=== PATIENT | male | born 1940 | race Caucasian/White ===

== ENCOUNTER 2020-10-01 07:49 | Outpatient (CLI) | payer MEDICARE, SELFPAY ==
--- NOTE | ~2020-10-01 | US_ITS ---
EXAMINATION: US aorta DATE: 10/01/2020 09:16 INDICATION: Abdominal aortic aneurysm screening, obesity TECHNIQUE: Grayscale, color Doppler, and pulsed Doppler images of the aorta and common iliac arteries were obtained. COMPARISON: None. FINDINGS: Maximum vascular dimensions are as follows: Proximal aorta: 2.2 cm Mid aorta: 2.6 cm Distal aorta: 2.0 cm Right common iliac artery: 1.6 cm Left common iliac artery: 1.3 cm There is no evidence of abdominal aortic aneurysm. IMPRESSION: 1. No sonographic evidence of abdominal aortic aneurysm. Reviewed, dictated and finalized at location A. TRAY DRIVER
== END 2020-10-01 07:50 | disposition home or self-care (01) ==
PROVIDERS: PCP Internal Medicine; Visit Provider Internal Medicine
DX: I71.4 Abdominal aortic aneurysm, without rupture (principal)
CPT/HCPCS: 76775

== ENCOUNTER 2020-10-14 10:21 | Outpatient (NON) | payer MEDICARE, SELFPAY ==
[2020-10-15 14:04] LABS: SARS-CoV-2 RNA PCR Positive
== END 2020-10-14 10:22 ==
LOC: ANHCOVIDDT 10:23
PROVIDERS: PCP Internal Medicine; Visit Provider Internal Medicine
DX: U07.1 COVID-19 (principal)
CPT/HCPCS: 87635; C9803; U0003

== ENCOUNTER 2020-10-15 21:00 | Emergency (ER) | payer MEDICARE, SELFPAY ==
--- NOTE | ~2020-10-15 | XR_ITS ---
EXAMINATION: XR chest 1V portable DATE: 10/15/2020 21:30 INDICATION: Shortness of breath, cough and fever. COVID positive. TECHNIQUE: frontal view of the chest was obtained. COMPARISON: Chest radiograph dated 04/03/2019 FINDINGS: Chronic elevation of the right hemidiaphragm. Right basilar opacities which could represent atelectas is and/or pneumonia. Left lung remains clear. No pulmonary edema, pleural effusion or pneumothorax. H eart size is normal. Small to moderate-sized hiatal hernia. Tortuous and atherosclerotic thoracic aor ta. Moderate thoracic spondylosis. IMPRESSION: 1. Right basilar opacities which could represent atelectasis and/or pneumonia. 2. Small to moderate hiatal hernia. Reviewed, dictated and finalized at location H. ER LICENSE AGENT
[2020-10-15 20:59] VITALS: BP 137/93; PULSE 78; RESP 18; TEMP 38.7; O2SAT 100
[2020-10-15 21:39] VITALS: RESP 18
[2020-10-15 21:45] LABS: Eosinophils Percent Auto 0.3 % (0-4.4); Hematocrit 33.9 % (42.0-52.0); Hemoglobin 11.2 g/dL (14.0-18.0); Immature Granulocyte Absolute 0.01 K/mm3 (0.00-0.031); Immature Granulocyte Percent A 0.3 % (0-0.5); Lymphocytes Absolute Auto 0.67 K/mm3 (0.9-3.2); Lymphocytes Percent Auto 19.2 % (18.3-44.2); Mean Corpuscular Hemoglobin 31.8 pg (26-34); Mean Corpuscular Volume 96.3 fl (80-100); Mean Platelet Volume 10.5 fl (7.4-10.4); Monocytes Absolute Auto 0.4 K/mm3 (0.1-0.6); Monocytes Percent Auto 10.9 % (2.6-8.5); Neutrophils Absolute Auto 2.4 K/mm3 (1.3-6.7); Neutrophils Percent Auto 69.3 % (45.5-73.1); Platelet Count Result 106 k/mm3 (150-375); Red Blood Count 3.52 M/mm3 (4.6-6.20); Red Cell Distribution Width 14.1 % (11.5-14.5); White Blood Count 3.5 K/mm3 (4.5-10.0)
--- NOTE | 2020-10-15 21:48 | ED.FEVER ---
HPI - Fever General Chief Complaint: Fever Stated Complaint: INCREASED WEAKNESS Time Seen by Provider: 10/15/20 21:38 History of Present Illness HPI Narrative: Patient is a 80-year-old gentleman who presents the emergency department with chief complaint of fever. The patient reports he was recently diagnosed with COVID-19 is now having body aches and feels extremely. The patient denies chest pain denies shortness of breath reports that his been taking Tylenol but still feels extremely weak and still reports to have a fever. Patient states symptoms are not improved by anything either worsened with activity. Related Data Allergies Allergy/AdvReac Type Severity Reaction Status Date / Time erythromycin base Allergy Unknown itching Verified 03/04/20 10:49 Penicillins Allergy Unknown Itching Verified 03/04/20 10:49 Review of Systems Review of Systems: Narrative: CONSTITUTIONAL: Denies fever, chills, or sweats. EYES: Denies visual changes, redness, or discharge. ENT: Denies rhinorrhea, congestion, sore throat, or otalgia. CARDIOVASCULAR: Denies chest pain, palpitations, or edema. RESPIRATORY: Denies cough or dyspnea. GASTROINTESTINAL: Denies abdominal pain, nausea, vomiting, or diarrhea. GENITOURINARY: Denies dysuria or hematuria. SKIN: Denies rash or itching. MUSCULOSKELETAL: Denies back pain, joint pain, or myalgia. NEUROLOGIC: Denies headache, numbness, or weakness. PSYCHIATRIC: Denies anxiety or depression. All systems reviewed & are unremarkable except as noted in HPI and below PMFSH Past Medical History Medical History Elevated liver enzymes Epilepsy Fatigue Urinary tract infection Vitamin D deficiency Social History Social History Smoking status: Never smoker Alcohol intake: current Exam Narrative: Exam Narrative: GENERAL: Well-appearing, well-nourished, and in no acute distress. HEAD: Normocephalic, atraumatic. EYES: PERRLA and EOMI. ENT: Nares clear, no rhinorrhea or epistaxis. Mucous membranes moist. NECK: Supple. CHEST: Clear to auscultation. No respiratory distress. HEART: Regular rate and rhythm. No murmur heard. Normal peripheral pulses. ABDOMEN: Soft, nontender, nondistended, normal active bowel sounds. EXTREMITIES: Normal range of motion. No edema. SKIN: Warm, dry, no rash. NEURO: No focal deficits. Alert and oriented x3. PSYCH: Normal mood and affect. Course Vital Signs Vital signs: Vital Signs Temperature 38.7 C H 10/15/20 20:59 Pulse Rate 78 10/15/20 20:59 Respiratory Rate 18 10/15/20 20:59 Blood Pressure 137/93 H 10/15/20 20:59 Pulse Oximetry 100 10/15/20 20:59 Temperature 37.3 C 10/16/20 00:59 Pulse Rate 89 10/15/20 22:20 Respiratory Rate 18 10/15/20 22:20 Blood Pressure 134/73 10/15/20 22:20 Pulse Oximetry 98 10/15/20 22:20 MDM - Fever Lab Data Result diagrams: 10/15/20 21:36 10/15/20 21:36 Labs: Lab Results 10/15/20 10/15/20 10/15/20 Range/Units 21:36 21:36 21:36 WBC 3.5 L (4.5-10.0) K/mm3 RBC 3.52 L (4.6-6.20) M/mm3 Hgb 11.2 L (14.0-18.0) g/dL Hct 33.9 L (42.0-52.0) % MCV 96.3 (80-100) fl MCH 31.8 (26-34) pg MCHC 33.0 (32-36) g/dl RDW 14.1 (11.5-14.5) % Plt Count 106 L (150-375) k/mm3 MPV 10.5 H (7.4-10.4) fl Immature Gran % (Auto) 0.3 (0-0.5) % Neut % (Auto) 69.3 (45.5-73.1) % Lymph % (Auto) 19.2 (18.3-44.2) % Alexander % (Auto) 10.9 H (2.6-8.5) % Eos % (Auto) 0.3 (0-4.4) % Baso % (Auto) 0.0 L (0.2-1.2) % Lymph # (Auto) 0.67 L (0.9-3.2) K/mm3 Alexander # (Auto) 0.4 (0.1-0.6) K/mm3 Eos # (Auto) 0.0 (0-0.3) K/mm3 Baso # (Auto) 0.0 (0.0-0.1) K/mm3 Abs Immat Gran (auto) 0.01 (0.00-0.031) K/mm3 Absolute Neuts (auto) 2.4 (1.3-6.7) K/mm3 Absolute Nucleated RBC 0.0 (0.0-0.012) K/mm3 Nuc
[2020-10-15 21:54] LABS: Prothrombin Time 14.1 Seconds (11.1-14.7)
[2020-10-15 21:56] LABS: Lactic Acid Reflex 0.8 mmol/L (0.7-2.1); Partial Thromboplastin Time 40.5 SECONDS (22.3-36.8)
[2020-10-15 22:03] LABS: Alanine Aminotransferase 47 U/L (4-50); Albumin Level 3.4 g/dL (3.5-5.1); Alkaline Phosphatase 34 U/L (38-126); Anion Gap 4 mmol/L (8-16); Aspartate Amino Transferase 125 U/L (17-59); Bilirubin,Total 0.3 mg/dL (0.2-1.3); Blood Urea Nitrogen 31 mg/dL (9-20); Calcium 8.8 mg/dL (8.4-10.2); Carbon Dioxide 34 mmol/L (22-30); Chloride 103 mmol/L (98-107); Estimated CRCL calculation 37 ml/min; Estimated Glomerular Filt Rate 45; Glucose 110 mg/dL (75-110); Potassium 4.1 mmol/L (3.4-5.0); Sodium 141 mmol/L (137-145)
[2020-10-15 22:11] LABS: CRP 12.6 mg/dL (<1.0)
[2020-10-15 22:20] VITALS: BP 134/73; PULSE 89; RESP 18; TEMP 37.6; O2SAT 98
[2020-10-15 22:43] VITALS: TEMP 38.4
[2020-10-15 23:05] LABS: Add Urine Microscopic? YES; Appearance Urine Cloudy (Clear); Bilirubin Urine Negative (Negative); Blood Urine Negative (Negative); Color Urine Yellow (Yellow); Glucose Urine UA Negative (Negative); Ketones Urine Negative (Negative); Leukocyte Esterase Ur 3+ LEU/UL (Negative); Mucus Urine Rare /lpf; Nitrate Urine Negative (Negative); Protein Urine 1+ mg/dL (Negative); Specific Grav Ur 1.019 (1.001-1.035); Squamous Epithelial Cell Urine Few /hpf (Few); Urobilinogen Urine Negative mg/dL (<2.0); WBC Urine >75 /hpf
[2020-10-15] MEDS: SODIUM CHLORIDE 0.9% IV 1,000 ML 999 ML IV CONT (23:20)
[2020-10-16 00:59] VITALS: TEMP 37.3
== END 2020-10-16 01:00 | disposition home or self-care (01) ==
PROVIDERS: Emergency Medicine Emergency Medical Services; Emergency Provider Emergency Medicine; PCP Internal Medicine
DX: U07.1 COVID-19 (principal); J12.89 Other viral pneumonia; N39.0 Urinary tract infection, site not specified; G40.909 Epilepsy, unspecified, not intractable, without status epilepticus; Z87.440 Personal history of urinary (tract) infections
CPT/HCPCS: 36415; 71045; 80053; 81001; 83605; 85025; 85610; 85730; 86140; 87040; 87086; 87088; 96361; 96365; 99284; J0131; J7030

== ENCOUNTER 2020-10-19 07:15 | Inpatient (IN) | payer MEDICARE, SELFPAY ==
[2020-10-19] VITALS (26 sets, daily range): BP systolic 127–154; BP diastolic 61–119; PULSE 66–87; RESP 14–32; TEMP 36.1–37.9; O2SAT 91–99; BMI 25.8
--- NOTE | ~2020-10-19 | XR_ITS ---
EXAMINATION: XR hip LT min 3V w AP pelvis DATE: 10/20/2020 13:51 INDICATION: Left hip pain. Fall. TECHNIQUE: An anteroposterior view of the pelvis and 3 views of left hip were obtained. COMPARISON: CT abdomen and pelvis 10/19/2020 FINDINGS: Bone alignment is normal. No fracture. There is moderate osteoarthritis of the hips. There is moderate lumbar spondylosis. There are stones in the bladder. There is contrast in the bladder. Joseph rgical clips overlie the abdomen. IMPRESSION: 1. Moderate osteoarthritis of the hips. Reviewed, dictated and finalized at location A. ER ASSEMBLER
--- NOTE | ~2020-10-19 | CT_ITS ---
EXAMINATION: CT brain wo con EXAM DATE: 10/19/2020 08:55 INDICATION: Weakness. Recent fall. Low back pain. COVID-19 positive. TECHNIQUE: Spiral CT of the head was performed without contrast. Axial, coronal and sagittal images were reviewed. The dose-length product (DLP) for this examination was 605.33 mGy-cm. The exposure w as tailored according to patient size, and iterative reconstruction (ASIR) was used as additional dos e reduction technique. Comparison is made to prior examination from 04/03/2019. FINDINGS: There is no acute intraparenchymal hemorrhage. No evidence of intraparenchymal brain mass lesion. No evidence of acute infarction. Please note that initial head CT has limited sensitivity f or small or acute infarctions. 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 S mall old left temporal occipital lobe infarction. There is moderate periventricular and subcortical hypodensity, nonspecific but probably related to small vessel ischemic disease. There is moderate p rominence of the sulci and ventricles related to cerebral atrophy. There is intracranial carotid ar teriosclerosis. There are no extra-axial collections. There is no mass effect or midline shift. Ramone doyle has had bilateral ocular lens surgery. Soft tissue is unremarkable. The visualized sinuses an d mastoid air cells are well aerated. IMPRESSION: 1. No acute intracranial findings. 2. Chronic age related findings. 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 Reviewed, dictated and finalized at location B. MANAGER
--- NOTE | ~2020-10-19 | XR_ITS ---
EXAMINATION: XR ribs LT 2V w CXR 2V EXAM DATE: 10/19/2020 09:21 INDICATION: falls, pain, bruising ant Lt chest, COVID positive. TECHNIQUE: Frontal projection of the upper left ribs, frontal projection of the lower left ribs, obli que projection of the left ribs, frontal and lateral chest x-ray(s) for interpretation. There is no prior study for comparison. FINDINGS: There are no displaced acute left rib fractures identified. There is no soft tissue abnor mality seen. There is aortic arteriosclerosis. Moderate amount of right-sided predominant acute airspace disease likely acute infectious process, cl inical correlation. No pneumothorax or pleural effusion. Cardiomediastinal silhouette is normal. Ther e are cholecystectomy clips. IMPRESSION: No displaced left rib fractures. Moderate right-sided predominant acute airspace disease . Reviewed, dictated and finalized at location B. LOGY NURSE IMPRESSION: No displaced left rib fractures. Moderate right-sided predominant acute airspace disease.
--- NOTE | ~2020-10-19 | CT_ITS ---
EXAMINATION: CT abdomen pelvis w con DATE: 10/19/2020 08:55 INDICATION: Left lower back pain. COVID-19 pneumonia. TECHNIQUE: Computed tomography (CT) of the abdomen and pelvis was performed with 100 mm Omnipaque 350 intravenous contrast. Automated exposure control and iterative reconstruction technique were employe d. The dose-length product was 1085.02 mGy-cm. COMPARISON: CT abdomen and pelvis 01/01/2010 FINDINGS: The visualized portions of the lung bases demonstrate patchy groundglass opacities in all l obes, consistent with pneumonia. No pleural effusion. The heart size is normal. There are coronary ar asuncion calcifications. No pericardial effusion. Calcified mediastinal lymph nodes are consistent with o ld granulomatous disease. There is a moderate-sized sliding hiatal hernia. There is an 8 mm cyst in t he liver. There are changes of cholecystectomy. Calcifications in the spleen are consistent with old granulomatous disease. The pancreas and adrenal glands are normal. There is mild atrophy of the kidne ys. There are cysts in the kidneys measuring up to 11 mm on the right. The prostate is mildly enlarge d. There is diffuse bladder wall thickening with multiple diverticula, likely secondary to chronic ou tlet obstruction from the mildly enlarged prostate. There are 2 stones in the bladder with the larger measuring 18 mm. There are bilateral inguinal hernias containing fat. There is diverticulosis of the colon without evidence of diverticulitis. There are no dilated loops of bowel. The appendix is nancy l. There are changes of ventral hernia repair. There are no pathologically enlarged lymph nodes. Ther e is no free intraperitoneal fluid. There is severe thoracic spondylosis and moderate lumbar spondylo sis. There is a chronic burst fracture of T11. There are chronic compression fractures of T5-T8. IMPRESSION: 1. Multifocal pneumonia. 2. Moderate-sized sliding hiatal hernia. 3. Bladder stones. 4. Diffuse bladder wall thickening with multiple diverticula, likely secondary to chronic outlet obst ruction from the mildly enlarged prostate. 5. Bilateral inguinal hernias containing fat. Reviewed, dictated and finalized at location A. GER TRADE IMPRESSION: 1. Multifocal pneumonia. 2. Moderate-sized sliding hiatal hernia. 3. Bladder stones. 4. Diffuse bladder wall thickening with multiple diverticula, likely secondary to chronic outlet obstruction from the mildly enlarged prostate. 5. Bilateral inguinal hernias containing fat.
--- NOTE | ~2020-10-19 | XR_ITS ---
EXAMINATION: XR knee LT 2V DATE: 10/23/2020 14:45 INDICATION: Left knee pain. Fall. TECHNIQUE: 2 views of left knee were obtained. COMPARISON: None. FINDINGS: Bone alignment is normal. No fracture. There is mild osteoarthritis of medial compartment. No knee joint effusion. IMPRESSION: 1. Mild left knee osteoarthritis. Reviewed, dictated and finalized at location A. ONCOLOGY CLINICAL
--- NOTE | ~2020-10-19 | XR_ITS ---
XR chest 1V portable 10/21/2020 06:03 Indication: CovidPneumonia Procedure: AP portable chest Comparison: Comparison to multiple prior studies sequentially, with oldest reviewed study dated 04/14. Findings: Developing bilateral airspace disease, compatible with pneumonia. Elevated right diaphragm. No significant pleural effusion or pneumothorax. No acute osseous abnormality. Impression: 1: Interval progression of bilateral airspace disease, compatible with pneumonia. Reviewed, dictated and finalized at location A. SOUP Impression: 1: Interval progression of bilateral airspace disease, compatible with pneumoni a.
--- NOTE | 2020-10-19 07:17 | ED.BACK ---
HPI - Back Pain/Injury General Chief Complaint: Back Pain/Injury Stated Complaint: Back Pain Source: patient Mode of arrival: EMS Limitations: no limitations History of Present Illness HPI Narrative: Patient is an 80-year-old gentleman who presents for evaluation of left-sided back pain. Patient reports that he has been feeling weak with increased back pain and spasm-like pain on the left side that travels down his left leg. When asked how long this has been occurring, patient is not able to give me a timeline exactly. Pt daughter states he was diagnosed with COVID on 10/15 with symptoms beginning on 10/13. He denies any fall or injury, but with chart review, pt with prior ER visit and had reported multiple falls. He denies any numbness. Patient states he was diagnosed with Covid over a week ago but denies any current chest pain or shortness of breath. He reports he was diagnosed with a urinary tract infection at a prior visit to our ER recently and started on an antibiotic. He states pain on the left side is dull, aching in nature, worse with movement. Related Data Allergies Allergy/AdvReac Type Severity Reaction Status Date / Time erythromycin base Allergy Unknown itching Verified 10/19/20 07:23 Penicillins Allergy Unknown Itching Verified 10/19/20 07:23 Review of Systems Review of Systems: Narrative: CONSTITUTIONAL: Denies fever, chills, or sweats. EYES: Denies visual changes, redness, or discharge. ENT: Reports mild rhinorrhea and congestion CARDIOVASCULAR: Denies chest pain, palpitations, or edema. RESPIRATORY: Denies cough or dyspnea. GASTROINTESTINAL: Denies abdominal pain, nausea, vomiting, or diarrhea. GENITOURINARY: Denies dysuria or hematuria. SKIN: Denies rash or itching. MUSCULOSKELETAL: Reports left-sided back pain, denies other joint pain or myalgias NEUROLOGIC: Denies headache, numbness, or weakness. [facility] Past Medical History Medical History Elevated liver enzymes Epilepsy Fatigue Urinary tract infection Vitamin D deficiency Social History Social History Smoking status: Never smoker Alcohol intake: current Gender identity (if verbalized by the patient): Male Exam Narrative: Exam Narrative: GENERAL: Awake, alert, conversant HEAD: Normocephalic, atraumatic. EYES: PERRLA and EOMI. ENT: Nares clear, no rhinorrhea or epistaxis. Mucous membranes moist. NECK: Supple. CHEST: No respiratory distress, breathing even and non labored HEART: Regular rate, sinus rhythm ABDOMEN:Non distended, non tender EXTREMITIES: Normal range of motion. No edema. Increased pain with movement of the left leg. Positive straight leg raise test. SKIN: Scattered bruising upper and lower extremities, thorax NEURO:No focal deficits. Alert and oriented x3 Course Vital Signs Vital signs: Vital Signs Temperature 37.9 C H 10/19/20 07:17 Pulse Rate 82 10/19/20 07:17 Respiratory Rate 17 10/19/20 07:17 Blood Pressure 138/101 H 10/19/20 07:17 Pulse Oximetry 95 10/19/20 07:17 Temperature 37.9 C H 10/19/20 07:17 Pulse Rate 76 10/19/20 10:16 Respiratory Rate 25 H 10/19/20 10:16 Blood Pressure 128/65 10/19/20 10:16 Pulse Oximetry 91 10/19/20 10:16 MDM - Back Pain/Injury MDM Narrative Medical decision making narrative: Patient presented for evaluation left lower back pain, difficulty with ambulation, frequent falls. Patient is somewhat unreliable historian, I was able to obtain more of a history from his daughter who states that he has been unable to ambulate at home without help, she has had difficulty getting him up to go to the bathroom or having him eat. Patient does have a recent Covid diagnosis, but from a Covid standpoint, patient is not in any respiratory failure. On exam, pain is reproducible and does mostly seem musculoskeletal in nature. His laboratory results are reassuring.
--- NOTE | 2020-10-19 07:50 | ECG_ITS ---
Measurements Intervals [place] Rate: 77 P: 20 [place]: 181 QRS: 20 QRSD: 93 T: 67 QT: 392 QTc: 444 Interpretive Statements SINUS RHYTHM NONSPECIFIC ST & T-WAVE ABNORMALITY- HIGH LATERAL LEADS BASELINE ARTIFACT- I, II, III, AVR, AVL, AVF BORDERLINE ECG Electronically Signed On 10-19-2020 8:19:07 [employer] SERV[employer] LEAD MERCHANDISER by Ba Erwin D.O.
[2020-10-19] MEDS: ACETAMINOPHEN 500 MG TABLET 1000 MG PO (08:12)
[2020-10-19] MEDS: diazePAM (*CRX) 5 MG TABLET 2.5 MG PO (08:12)
[2020-10-19 08:13] LABS: Eosinophils Percent Auto 0.2 % (0-4.4); Hematocrit 35.2 % (42.0-52.0); Hemoglobin 11.6 g/dL (14.0-18.0); Immature Granulocyte Absolute 0.03 K/mm3 (0.00-0.031); Immature Granulocyte Percent A 0.6 % (0-0.5); Lymphocytes Absolute Auto 0.79 K/mm3 (0.9-3.2); Mean Corpuscular Hemoglobin 30.9 pg (26-34); Mean Corpuscular Volume 93.6 fl (80-100); Mean Platelet Volume 10.2 fl (7.4-10.4); Monocytes Absolute Auto 0.3 K/mm3 (0.1-0.6); Monocytes Percent Auto 5.6 % (2.6-8.5); Neutrophils Absolute Auto 3.6 K/mm3 (1.3-6.7); Neutrophils Percent Auto 76.6 % (45.5-73.1); Platelet Count Result 144 k/mm3 (150-375); Red Blood Count 3.76 M/mm3 (4.6-6.20); Red Cell Distribution Width 13.7 % (11.5-14.5); White Blood Count 4.7 K/mm3 (4.5-10.0)
[2020-10-19] MEDS: SODIUM CHLORIDE 0.9% IV 500 ML 999 ML IV CONT (08:13)
[2020-10-19 08:23] LABS: INR 1.2; Prothrombin Time 15.3 Seconds (11.1-14.7)
[2020-10-19 08:24] LABS: Partial Thromboplastin Time 42.5 SECONDS (22.3-36.8)
[2020-10-19 08:27] LABS: Alanine Aminotransferase 49 U/L (4-50); Albumin Level 3.4 g/dL (3.5-5.1); Alkaline Phosphatase 40 U/L (38-126); Anion Gap 8 mmol/L (8-16); Aspartate Amino Transferase 98 U/L (17-59); Bilirubin,Total 0.6 mg/dL (0.2-1.3); Blood Urea Nitrogen 20 mg/dL (9-20); Calcium 8.5 mg/dL (8.4-10.2); Carbon Dioxide 30 mmol/L (22-30); Chloride 106 mmol/L (98-107); Estimated CRCL calculation 48 ml/min; Estimated Glomerular Filt Rate > 60; Glucose 116 mg/dL (75-110); Potassium 3.4 mmol/L (3.4-5.0); Sodium 144 mmol/L (137-145)
[2020-10-19 08:44] LABS: CRP 20.2 mg/dL (<1.0); Creatine Kinase 473 U/L (55-170)
[2020-10-19 08:45] LABS: Troponin I 0.055 ng/mL (0.000-0.034)
[2020-10-19 09:54] LABS: Add Urine Microscopic? YES; Appearance Urine Clear (Clear); Bacteria Urine Trace /hpf; Bilirubin Urine Negative (Negative); Blood Urine Negative (Negative); Color Urine Yellow (Yellow); Glucose Urine UA Negative (Negative); Ketones Urine Negative (Negative); Leukocyte Esterase Ur 2+ LEU/UL (Negative); Mucus Urine Rare /lpf; Nitrate Urine Negative (Negative); Protein Urine 1+ mg/dL (Negative); Squamous Epithelial Cell Urine Occasional /hpf (Few); WBC Urine >75 /hpf
[2020-10-19 10:00] LABS: Specific Grav Ur 1.041 (1.001-1.035)
[2020-10-19 11:01] LABS: Troponin I 0.064 ng/mL (0.000-0.034)
[2020-10-19] MEDS: ASPIRIN 81 MG CHEWABLE TABLET 324 MG PO (11:38)
--- NOTE | 2020-10-19 11:43 | PC.NURSE ---
attempted to call report to imu room 9. nurse currently unavailable
--- NOTE | 2020-10-19 11:51 | PC.NURSE ---
placed on O2 2lpm nc for room air sat of 91-92%
--- NOTE | 2020-10-19 11:56 | PCOTNOTE ---
Attempted OT evaluation, per RN patient has not arrived to unit yet from ED, will attempt OT eval at later time.
--- NOTE | 2020-10-19 12:32 | ADMGEN ---
This patient, Christopher Arroyo, was admitted to IMU Room 209-01 at 1225 on 10/19/2020. Patient/family oriented to hospital policies and general routines including ID bracelet, bed and alarms, visiting hours, pain management, procedures, bathroom and other care routines, personal items, smoking policy, room service/diet, and visiting hours. Information on how to activate the Rapid Response Team has been discussed. Patient/Family are encouraged to report perceived risks to care and to ask questions if they do not understand what they are told or what they should do.
--- NOTE | 2020-10-19 15:06 | PM.IMHP ---
H&P: HPI History of Present Illness Date/Time: 10/19/20 15:06 Chief complaint: covid 19,pneumonia,dehydration Narrative: Christopher Arroyo is a 80 year old male with PMHx significant for HTN, BPH, Covid 19 positive at home, was brought to ED due to generalized weakness, poor appetite, recurrent falls.Patient was diagnosed with Covid roughly 5 days ago. He was found to have UTI as well for which he has been getting Levofloxacin. Preliminary work up is also significant for B/L lung infiltrates seen on CT, chest xr showed no rib fractures. Review of Systems Review of Systems: Narrative: Generalized weakness. Constitutional: Comments: Generalized weakness. Eyes: Comments: no vision changes. ENT: Comments: no ear ache, no throat pain, no no nasal congestion. Cardiovascular: Comments: no chest pain. Respiratory: Comments: No sob, no cough or sputum production. Gastrointestinal: Comments: no abdominal pain, poor appetite. Musculoskeletal: Comments: Recurrent falls. Integumentary/Breasts: Comments: no rashes. Neurologic: Comments: no9 sensory motor deficit. [facility] Past Medical History Medical History Elevated liver enzymes Epilepsy Fatigue Urinary tract infection Vitamin D deficiency Family History Family History Other Unknown family medical history Social History Social History Smoking status: Never smoker Alcohol intake: never Substance use: never Gender identity (if verbalized by the patient): Male Sexual Orientation (if Verbalized by the Patient): Straight or Heterosexual Spiritual care concerns: No Meds Home Medications and Allergies Home Medications Medication Instructions Recorded Confirmed Type simvastatin 20 mg tablet 20 mg PO DAILY #90 tablet 07/13/20 10/19/20 Rx nitrofurantoin macrocrystal 50 mg See Rx Instructions .ROUTE 08/24/20 10/19/20 Rx capsule .COMPLEX #36 cap cholecalciferol (vitamin D3) 1,250 1,250 mcg PO .every 3 weeks #12 cap 09/16/20 10/19/20 Rx mcg (50,000 unit) capsule phenytoin sodium extended 100 mg See Rx Instructions .ROUTE 09/16/20 10/19/20 Rx capsule .COMPLEX #270 cap levofloxacin 750 mg PO DAILY 7 Days #7 tablet 10/16/20 10/19/20 Rx amlodipine-benazepril 1 cap PO HS 10/19/20 10/19/20 History clopidogrel 75 mg PO DAILY 10/19/20 10/19/20 History escitalopram oxalate 10 mg PO DAILY 10/19/20 10/19/20 History fenofibrate 160 mg PO DAILY 10/19/20 10/19/20 History finasteride 5 mg PO DAILY 10/19/20 10/19/20 History Allergies Allergy/AdvReac Type Severity Reaction Status Date / Time erythromycin base Allergy Unknown itching Verified 10/19/20 07:23 Penicillins Allergy Unknown Itching Verified 10/19/20 07:23 Vital Signs Vital Signs - 24 hr 10/19/20 07:17 10/19/20 07:25 10/19/20 07:26 Temperature 100.3 F H Pulse Rate 82 78 Respiratory Rate 17 28 H Blood Pressure 138/101 H Pulse Oximetry 95 94 94 10/19/20 07:32 10/19/20 07:33 10/19/20 07:46 Temperature Pulse Rate 77 74 77 Respiratory Rate 27 H 21 H 32 H Blood Pressure 145/76 H 154/91 H Pulse Oximetry 98 93 10/19/20 07:49 10/19/20 08:00 10/19/20 08:16 Temperature Pulse Rate 77 75 84 Respiratory Rate 14 24 H 21 H Blood Pressure Pulse Oximetry 93 10/19/20 08:31 10/19/20 08:32 10/19/20 09:39 Temperature Pulse Rate 75 78 Respiratory Rate 21 H 16 19 Blood Pressure 131/119 H Pulse Oximetry 10/19/20 10:02 10/19/20 10:04 10/19/20 10:15 Temperature Pulse Rate 87 80 75 Respiratory Rate 31 H 22 H 29 H Blood Pressure 138/69 Pulse Oximetry 94 91 93 10/19/20 10:16 10/19/20 11:50 10/19/20 12:04 Temperature 99 F Pulse Rate 76 68 70 Respiratory Rate 25 H 17 19 Blood Pressure 128/65 128/103 H 133/100 H Pulse Oximetry 91 99 99 10/19/20 12:50 Temperature 97.2 F L Pulse Rate 67 Re
[2020-10-19 19:27] LABS: Troponin I 0.061 ng/mL (0.000-0.034)
[2020-10-19] MEDS: amLODIPine BESYLATE 5 MG TABLET BY MOUTH (20:41)
[2020-10-19] MEDS: HEPARIN SODIUM 5,000 UNITS/ML VIAL 5000 UNITS SUB-Q (20:41)
[2020-10-19] MEDS: lisinopriL 20 MG TABLET PO (20:42)
[2020-10-20] VITALS (13 sets, daily range): BP systolic 99–143; BP diastolic 51–75; PULSE 61–89; RESP 16–20; TEMP 36.1–36.6; O2SAT 92–99
--- NOTE | 2020-10-20 | ECHO_ITS ---
Patient Info Name: Christopher Arroyo Age: 80 years : 1940 Gender: Male Ht: 66 in Wt: 163 lbs BSA: 1.87 m2 HR: 84 bpm BP: 143 / 63 mmHg Heart Rhythm: Sinus Rhythm Exam Date: 10/20/2020 12:00 PM Exam Location: [facility] Patient Status: Inpatient Admit Date: 10/19/2020 Staff Ordering Physician: Vargas Mcghee MD Line Assembly Utility Worker: Don Hamilton, LITA, RT Attending Provider: Grady Mayers MD Exam Type: CA echo doppler color flow Study Info Indications - elevated troponin, covid 19 infection Complete two-dimensional, color flow and Doppler transthoracic echocardiogram is performed. Strain analysis performed. Summary 1. Complete two-dimensional, color flow and Doppler transthoracic echocardiogram is performed. 2. Strain analysis performed. 3. Left ventricular chamber dimension is normal. 4. Left ventricular systolic function is normal, estimated at 55-60%. 5. There is mildly increased left ventricular wall thickness. 6. The left ventricular diastolic function is grade I diastolic dysfunction. 7. Global longitudinal strain is abnormal at -15 %. 8. Left atrial chamber dimension is mildly enlarged. 9. There is mild aortic valve regurgitation. 10. There is mild aortic valve sclerosis. 11. There is mild tricuspid valve regurgitation. 12. There is mild pulmonic regurgitation. Left Ventricle Left ventricular chamber dimension is normal. Left ventricular systolic function is normal, estimated at 55-60%. There is mildly increased left ventricular wall thickness. The left ventricular diastolic function is grade I diastolic dysfunction. Global longitudinal strain is abnormal at -15 %. Right Ventricle Right ventricular chamber dimension is normal. Right ventricular systolic function is normal. Left Atria Left atrial chamber dimension is mildly enlarged. Right Atria Right atrial chamber dimension is normal. Atrial Septum Intact interatrial septum visualized by color flow imaging. Aortic Valve The aortic valve is trileaflet. There is mild aortic valve sclerosis. There is no aortic valve stenosis. There is mild aortic valve regurgitation. Pulmonic Valve The pulmonic valve is normal. There is no pulmonic valve stenosis. There is mild pulmonic regurgitation. Mitral Valve The mitral valve has normal leaflets. There is no mitral valve stenosis. There is trace mitral valve regurgitation. Tricuspid Valve The tricuspid valve leaflets are normal. There is no significant tricuspid valve stenosis. There is mild tricuspid valve regurgitation. Pericardium/Pleural The pericardium appears normal. There is no pericardial effusion. Inferior Vena Cava Normal inferior vena cava with <50% collapse upon inspiration consistent with elevated right atrial pressure, 10 mmHg. Aorta The aortic root size at the sinus of Valsalva is dilated. Left Ventricular Outflow Tract Name Value Normal LVOT 2D LVOT Diameter 2.2 cm LVOT Doppler LVOT Peak Velocity 93 cm/s LVOT Peak Gradient 3 mmHg LVOT Mean Gradient 2 mmH
[2020-10-20 04:18] LABS: Basophils Percent Auto 0.2 % (0.2-1.2); Hemoglobin 10.8 g/dL (14.0-18.0); Immature Granulocyte Absolute 0.07 K/mm3 (0.00-0.031); Immature Granulocyte Percent A 1.2 % (0-0.5); Lymphocytes Absolute Auto 0.96 K/mm3 (0.9-3.2); Lymphocytes Percent Auto 15.9 % (18.3-44.2); Mean Corpuscular HGB Conc 32.7 g/dl (32-36); Mean Corpuscular Hemoglobin 30.5 pg (26-34); Mean Corpuscular Volume 93.2 fl (80-100); Mean Platelet Volume 10.3 fl (7.4-10.4); Monocytes Absolute Auto 0.4 K/mm3 (0.1-0.6); Monocytes Percent Auto 6.8 % (2.6-8.5); Neutrophils Absolute Auto 4.6 K/mm3 (1.3-6.7); Neutrophils Percent Auto 75.9 % (45.5-73.1); Platelet Count Result 158 k/mm3 (150-375); Red Blood Count 3.54 M/mm3 (4.6-6.20); Red Cell Distribution Width 13.7 % (11.5-14.5)
[2020-10-20 04:38] LABS: Alanine Aminotransferase 48 U/L (4-50); Albumin Level 3.3 g/dL (3.5-5.1); Alkaline Phosphatase 44 U/L (38-126); Anion Gap 8 mmol/L (8-16); Aspartate Amino Transferase 89 U/L (17-59); Bilirubin,Total 0.5 mg/dL (0.2-1.3); Blood Urea Nitrogen 22 mg/dL (9-20); Calcium 8.4 mg/dL (8.4-10.2); Carbon Dioxide 28 mmol/L (22-30); Chloride 107 mmol/L (98-107); Estimated CRCL calculation 43 ml/min; Estimated Glomerular Filt Rate > 60; Glucose 109 mg/dL (75-110); Potassium 3.5 mmol/L (3.4-5.0); Sodium 143 mmol/L (137-145)
--- NOTE | 2020-10-20 10:14 | PM.CNCAR ---
Assessment and Plan Assessment and plan (1) COVID-19: Code(s): U07.1 - COVID-19 Status: Acute Assessment and Plan: Management as per primary team (2) Troponin level elevated: Code(s): R77.8 - Other specified abnormalities of plasma proteins Status: Acute Assessment and Plan: nonspecific in the setting of infection. No acute ST segment abnormality on EKG. Will check echocardiogram to assess LV function and wall motion. Conservative cardiac management is anticipated, unless otherwise indicated. History of Present Illness History of Present Illness Consult date/time: 10/20/20 10:14 Date of consult: 10/20/2020 Reason for consult: Requesting physician: Chief complaint: HPI: 80-year-old male with hypertension, dyslipidemia, Patient was admitted to [facility] on 10/15/2020 with complaints of fever, myalgia. He was apparently diagnosed with COVID-19 infection few days prior to the arrival to the ER. Patient denied chest pain. Had shortness of breath. No palpitation, dizziness or syncope. Chest x-ray showed right basilar opacities which could represent atelectasis and/or pneumonia; small to moderate hiatal hernia. Head CT negative for any acute intracranial abnormality. CT scan of the chest from yesterday shows multifocal pneumonia. Patient's troponins are minimally elevated, and essentially flat. EKG on my personal evaluation shows sinus rhythm, nonspecific ST-T abnormality. Reason For Visit: covid 19,pneumonia,dehydration Review of Systems Review of Systems: Narrative: As per HPI, otherwise system shows generalized fatigue, weakness, shortness of breath, myalgias. No bleeding. No nausea or vomiting. PMFSH Past Medical History Medical History Elevated liver enzymes Epilepsy Fatigue Urinary tract infection Vitamin D deficiency Family History Family History (Updated 10/20/20 @ 11:09 by Vargas Mcghee MD) Other Unknown family medical history Social History Social History Smoking status: Never smoker Alcohol intake: never Substance use: never Gender identity (if verbalized by the patient): Male Sexual Orientation (if Verbalized by the Patient): Straight or Heterosexual Spiritual care concerns: No Meds Home Medications and Allergies Home Medications Medication Instructions Recorded Confirmed Type simvastatin 20 mg tablet 20 mg PO DAILY #90 tablet 07/13/20 10/19/20 Rx nitrofurantoin macrocrystal 50 mg See Rx Instructions .ROUTE 08/24/20 10/19/20 Rx capsule .COMPLEX #36 cap cholecalciferol (vitamin D3) 1,250 1,250 mcg PO .every 3 weeks #12 cap 09/16/20 10/19/20 Rx mcg (50,000 unit) capsule phenytoin sodium extended 100 mg See Rx Instructions .ROUTE 09/16/20 10/19/20 Rx capsule .COMPLEX #270 cap levofloxacin 750 mg PO DAILY 7 Days #7 tablet 10/16/20 10/19/20 Rx amlodipine-benazepril 1 cap PO HS 10/19/20 10/19/20 History clopidogrel 75 mg PO DAILY 10/19/20 10/19/20 History escitalopram oxalate 10 mg PO DAILY 10/19/20 10/19/20 History fenofibrate 160 mg PO DAILY 10/19/20 10/19/20 History finasteride 5 mg PO DAILY 10/19/20 10/19/20 History Allergies Allergy/AdvReac Type Severity Reaction Status Date / Time erythromycin base Allergy Unknown itching Verified 10/19/20 07:23 Penicillins Allergy Unknown Itching Verified 10/19/20 07:23 Vital Signs Vital Signs - 24 hr 10/19/20 10:15 10/19/20 10:16 10/19/20 11:50 Temperature 37.2 C Pulse Rate 75 76 68 Respiratory Rate 29 H 25 H 17 Blood Pressure 128/65 128/103 H Pulse Oximetry 93 91 99 10/19/20 12:04 10/19/20 12:50 10/19/20 14:00 Temperature 36.2 C L Pulse Rate 70 67 66 Respiratory Rate 19 16 Blood Pressure 133/100 H 140/76 Pulse Oximetry 99 99 10/19/20 15:43 10/19/20 16:00 10/19/20 18:00 Temperature 36.1 C L Pulse Rate 71 68 72 Respiratory Rate 15 Blood P
[2020-10-20] MEDS: PHENYTOIN SODIUM 100 MG CAP 300 MG BY MOUTH (10:53)
[2020-10-20] MEDS: SIMVASTATIN 20 MG TABLET PO (10:53)
[2020-10-20] MEDS: FENOFIBRATE 160 MG TABLET PO (10:53)
[2020-10-20] MEDS: FINASTERIDE 5 MG TABLET PO (10:53)
[2020-10-20] MEDS: CLOPIDOGREL BISULFATE 75 MG TABLET PO (10:54)
[2020-10-20] MEDS: HEPARIN SODIUM 5,000 UNITS/ML VIAL 5000 UNITS SUB-Q ×2 (10:54→21:34)
[2020-10-20] MEDS: ESCITALOPRAM OXALATE 10 MG TABLET PO (10:54)
--- NOTE | 2020-10-20 12:27 | PM.IMPN ---
Progress Note: A&P Assessment and Plan (1) Pneumonia due to COVID-19 virus: Code(s): U07.1 - COVID-19; J12.89 - Other viral pneumonia Status: Acute Assessment and Plan: Started on Rocephin and Zithromax for diffuse lung infiltrates present. Was on Levofloxacin on the outpatient setting but discontinued due to generalized weakness. COVID positive on 10/14/20. Minimal O2 requirement and efficacy is questionable so will continue to hold Remdesivir at the present time. Okay to start Dexamethasone. Continue to monitor. (2) Essential hypertension: Code(s): I10 - Essential (primary) hypertension Status: Acute Assessment and Plan: Patient's blood pressure was reviewed on 10/20 Blood pressure remains well controlled. Will continue current medications with Norvasc and Lisinopril. Continue to monitor. (3) Recurrent falls: Code(s): R29.6 - Repeated falls Status: Acute Assessment and Plan: Continue fall precautions. Continue PT/OT (4) UTI (urinary tract infection): Code(s): N39.0 - Urinary tract infection, site not specified Status: Acute Assessment and Plan: UA noted. Urine culture pending. Continue Rocephin for now. (5) Epilepsy: Code(s): G40.909 - Epilepsy, unspecified, not intractable, without status epilepticus Status: Acute Assessment and Plan: Stable. Continue Dilantin. (6) DVT prophylaxis: Code(s): Z29.9 - Encounter for prophylactic measures, unspecified Status: Acute Assessment and Plan: Heparin Subjective Date/time seen: 10/20/20 12:27 Interval history: Date of service: 10/20/20 80yo male with HTN, BPH and recently diagnosed with COVID here for GNW, poor appetite and recurrent falls. Assuming care. Chart reviewed Patient denies any chest pain or shortness of breath. Denies cough. No nausea or vomiting. Appetite is still poor. Complains of left leg and huip pain but this is not uncommon for him. Exam Narrative: Exam Narrative: AF 97.7 143/63 72 20 97% 2L Gen - NARD Chest - few scattered inspiratory rhonchi. nml RR CV - RRR S1/S2; Tele showing no significant dysrhythmias Abd - Soft, NT/ND, Positive BS Ext - No pedal edema; pain with left hip flexion but internal and external rotation normal. Nml ROM right hip and knee. Left knee without pain Psych - Nml mood and affect Skin - ecchymosis left anterior chest wall and abd wall Objective Data Vital Signs Vital Signs: Vital Signs - 24 hr 10/19/20 12:50 10/19/20 14:00 10/19/20 15:43 Temperature 97.2 F L 97.0 F L Pulse Rate 67 66 71 Respiratory Rate 16 15 Blood Pressure 140/76 136/62 Pulse Oximetry 99 99 10/19/20 16:00 10/19/20 18:00 10/19/20 20:00 Temperature 97.8 F Pulse Rate 68 72 85 Respiratory Rate 20 Blood Pressure 129/88 Pulse Oximetry 97 10/19/20 22:00 10/19/20 23:50 10/20/20 00:00 Temperature 97.8 F Pulse Rate 87 87 89 Respiratory Rate 22 H Blood Pressure 127/61 Pulse Oximetry 94 10/20/20 02:00 10/20/20 04:00 10/20/20 06:00 Temperature 97.9 F Pulse Rate 89 83 79 Respiratory Rate 20 Blood Pressure 133/62 Pulse Oximetry 96 10/20/20 07:46 10/20/20 08:00 10/20/20 10:00 Temperature 97.7 F Pulse Rate 75 75 72 Respiratory Rate 20 Blood Pressure 143/63 H Pulse Oximetry 97 97 Intake/Output Intake/Output: Intake & Output 10/17/20 10/18/20 10/19/20 10/20/20 23:59 23:59 23:59 23:59 Intake Total 1000 250 Output Total 425 Balance 575 250 Meds/Results Medications: Active Medications Generic Name Dose Route Start Last Admin Trade Name Freq PRN Reason Stop Dose Admin Acetaminophen 650 mg 10/19/20 11:42 Acetaminophen 325 Mg Tablet PO Q4H PRN Mild Pain (1-3) or Fever Al Hydrox/Mg Hydrox/Simethicone 30 ml 10/19/20 11:42 Mag Hydrox/Al Hydrox/Simeth 30 Ml Udc PO QID PRN Dyspepsia Amlodipine
[2020-10-20] MEDS: DEXAMETHASONE 2 MG TABLET 6 MG PO (14:26)
--- NOTE | 2020-10-20 15:19 | PCOTNOTE ---
Patient declined to participate in any OT ADLs or exercises. Will continue plan of care tomorrow, 10/21/2020.
[2020-10-20] MEDS: ERGOCALCIFEROL 50,000 UNIT CAPSULE 50000 UNITS PO (18:40)
[2020-10-20] MEDS: amLODIPine BESYLATE 5 MG TABLET BY MOUTH (21:34)
[2020-10-20] MEDS: lisinopriL 20 MG TABLET PO (21:34)
[2020-10-21] VITALS (10 sets, daily range): BP systolic 119–147; BP diastolic 54–97; PULSE 63–87; RESP 18–20; TEMP 35.8–37.3; O2SAT 90–100
[2020-10-21 04:35] LABS: Hematocrit 34.2 % (42.0-52.0); Hemoglobin 11.2 g/dL (14.0-18.0); Mean Corpuscular HGB Conc 32.7 g/dl (32-36); Mean Corpuscular Hemoglobin 30.8 pg (26-34); Mean Platelet Volume 10.2 fl (7.4-10.4); Platelet Count Result 213 k/mm3 (150-375); Red Blood Count 3.64 M/mm3 (4.6-6.20); Red Cell Distribution Width 14.1 % (11.5-14.5); White Blood Count 7.4 K/mm3 (4.5-10.0)
[2020-10-21 04:53] LABS: Potassium 3.9 mmol/L (3.4-5.0)
[2020-10-21 05:01] LABS: Alanine Aminotransferase 51 U/L (4-50); Albumin Level 3.3 g/dL (3.5-5.1); Alkaline Phosphatase 45 U/L (38-126); Anion Gap 4 mmol/L (8-16); Aspartate Amino Transferase 99 U/L (17-59); Bilirubin,Total 0.5 mg/dL (0.2-1.3); Blood Urea Nitrogen 34 mg/dL (9-20); Calcium 8.6 mg/dL (8.4-10.2); Carbon Dioxide 34 mmol/L (22-30); Chloride 105 mmol/L (98-107); Estimated CRCL calculation 40 ml/min; Estimated Glomerular Filt Rate 58; Glucose 112 mg/dL (75-110); Lactate Dehydrogenase 1037 U/L (313-618); Sodium 143 mmol/L (137-145)
[2020-10-21 05:39] LABS: CRP 32.8 mg/dL (<1.0)
[2020-10-21] MEDS: HEPARIN SODIUM 5,000 UNITS/ML VIAL 5000 UNITS SUB-Q ×2 (08:45→20:40)
[2020-10-21] MEDS: NITROFURANTOIN MACROCRYSTALS 50 MG CAP BY MOUTH (08:47)
[2020-10-21] MEDS: DEXAMETHASONE 2 MG TABLET 6 MG PO (08:48)
[2020-10-21] MEDS: SIMVASTATIN 20 MG TABLET PO (08:48)
[2020-10-21] MEDS: FENOFIBRATE 160 MG TABLET PO (08:48)
[2020-10-21] MEDS: ESCITALOPRAM OXALATE 10 MG TABLET PO (08:48)
[2020-10-21] MEDS: FINASTERIDE 5 MG TABLET PO (08:48)
[2020-10-21] MEDS: CLOPIDOGREL BISULFATE 75 MG TABLET PO (08:48)
[2020-10-21] MEDS: PHENYTOIN SODIUM 100 MG CAP 300 MG BY MOUTH (08:49)
--- NOTE | 2020-10-21 12:06 | PM.IMPN ---
Progress Note: A&P Assessment and Plan (1) Pneumonia due to COVID-19 virus: Code(s): U07.1 - COVID-19; J12.89 - Other viral pneumonia Status: Acute Assessment and Plan: Started on Rocephin and Zithromax for diffuse lung infiltrates present. Was on Levofloxacin on the outpatient setting but discontinued due to generalized weakness. COVID positive on 10/14/20. ECHO showing EF 55% with grade 1 diastolic dysfunction. CXR reviewed from today and showing progression despite clinically improving. Minimal O2 requirement and efficacy is questionable so will continue to hold Remdesivir at the present time. LFTs noed and probably related to COVID. Inflammatory markers noted as well. Continue Dexamethasone. Will stop abx. Continue to monitor. (2) Essential hypertension: Code(s): I10 - Essential (primary) hypertension Status: Acute Assessment and Plan: Patient's blood pressure was reviewed on 10/21 Blood pressure remains well controlled. Will continue current medications with Norvasc and Lisinopril. Continue to monitor. (3) Recurrent falls: Code(s): R29.6 - Repeated falls Status: Acute Assessment and Plan: Hip xray showing osteoarthritis. Continue fall precautions. Continue PT/OT (4) UTI (urinary tract infection): Code(s): N39.0 - Urinary tract infection, site not specified Status: Acute Assessment and Plan: UA noted. Urine culture most likely contaminate. Okay to stop Rocephin. (5) Epilepsy: Code(s): G40.909 - Epilepsy, unspecified, not intractable, without status epilepticus Status: Acute Assessment and Plan: Stable. Continue Dilantin. (6) DVT prophylaxis: Code(s): Z29.9 - Encounter for prophylactic measures, unspecified Status: Acute Assessment and Plan: Heparin Subjective Date/time seen: 10/21/20 12:06 Interval history: Date of service: 10/21 80yo male with HTN, BPH and recently diagnosed with COVID here for GNW, poor appetite and recurrent falls. Patient feels well. No chest pain. Shortness of breath is better. Still having liquid stools. Exam Narrative: Exam Narrative: AF 97.3 139/76 87 20 94% 1L Gen - NARD Chest -lungs clear to auscultation. Normal respiratory rate. CV - RRR S1/S2; Tele showing no significant dysrhythmias Abd - Soft, NT/ND, Positive BS Ext - No pedal edema Psych - Nml mood and affect Skin - ecchymosis left anterior chest wall and abd wall but no pain to palpation to the chest wall Objective Data Vital Signs Vital Signs: Vital Signs - 24 hr 10/20/20 13:41 10/20/20 16:00 10/20/20 17:30 Temperature 97 F L Pulse Rate 66 61 69 Respiratory Rate 20 Blood Pressure 138/66 Pulse Oximetry 93 92 10/20/20 20:00 10/20/20 23:45 10/21/20 00:00 Temperature 97.8 F 97.8 F Pulse Rate 75 82 87 Respiratory Rate 20 Blood Pressure 99/75 L 105/62 Pulse Oximetry 93 99 10/21/20 04:00 10/21/20 08:00 Temperature 97.8 F 97.3 F L Pulse Rate 77 87 Respiratory Rate 20 20 Blood Pressure 147/97 H 139/76 Pulse Oximetry 97 94 Intake/Output Intake/Output: Intake & Output 10/18/20 10/19/20 10/20/20 10/21/20 23:59 23:59 23:59 23:59 Intake Total 2960 793 1289 Output Total 425 Balance 981 269 8733 Meds/Results Medications: Active Medications Generic Name Dose Route Start Last Admin Trade Name Freq PRN Reason Stop Dose Admin Acetaminophen 650 mg 10/19/20 11:42 Acetaminophen 325 Mg Tablet PO Q4H PRN Mild Pain (1-3) or Fever Al Hydrox/Mg Hydrox/Simethicone 30 ml 10/19/20 11:42 Mag Hydrox/Al Hydrox/Simeth 30 Ml Udc PO QID PRN Dyspepsia Amlodipine Besylate 5 mg 10/19/20 21:00 10/20/20 21:34 Amlodipine Besylate 5 Mg Tablet BY MOUTH 5 mg HS CHAVA Administration Clopidogrel Bisulfate 75 mg 10/20/20 09:00 10/21/20 08:48 Clopidogrel Bisulfate 75 Mg Tablet PO 75 mg DAILY CHAVA
--- NOTE | 2020-10-21 13:08 | PM.PNCARD ---
Progress Note: A&P Assessment and Plan (1) COVID-19: Code(s): U07.1 - COVID-19 Status: Acute Assessment and Plan: Management as per primary team (2) Troponin level elevated: Code(s): R77.8 - Other specified abnormalities of plasma proteins Status: Acute Assessment and Plan: nonspecific in the setting of infection. No acute ST segment abnormality on EKG. Not related to ACS Echocardiogram is unremarkable. Cardiology to sign off Subjective Date/time seen: 10/21/20 13:08 Interval history: 80yo male with HTN, BPH and recently diagnosed with COVID here for GNW, poor appetite and recurrent falls. Date of service 10/21/2020: No chest pain. No significant shortness breath. Feels okay consider Review of Systems Review of Systems: All systems reviewed & are unremarkable except as noted in HPI and below ENT: Reports Normal hearing present Cardiovascular: Cardiovascular: Denies chest pain Neurologic: Denies headache(s) Exam Const: General: no acute distress HENMT: General nose exam: Normal nares present Eyes: Sclera: sclerae normal Cardio: Rate: regular rate Rhythm: regular rhythm Neuro: Cognition (Neuro): normal cognition Speech: normal speech Psych: Mental Status: mental status grossly normal Objective Data Vital Signs Vital Signs: Vital Signs - 24 hr 10/20/20 13:41 10/20/20 16:00 10/20/20 17:30 Temperature 36.1 C L Pulse Rate 66 61 69 Respiratory Rate 20 Blood Pressure 138/66 Pulse Oximetry 93 92 10/20/20 20:00 10/20/20 23:45 10/21/20 00:00 Temperature 36.6 C 36.6 C Pulse Rate 75 82 87 Respiratory Rate 20 Blood Pressure 99/75 L 105/62 Pulse Oximetry 93 99 10/21/20 04:00 10/21/20 08:00 10/21/20 12:00 Temperature 36.6 C 36.3 C L 36.3 C L Pulse Rate 77 87 76 Respiratory Rate 20 20 20 Blood Pressure 147/97 H 139/76 125/57 L Pulse Oximetry 97 94 94 Intake/Output Intake/Output: Intake & Output 10/18/20 10/19/20 10/20/20 10/21/20 23:59 23:59 23:59 23:59 Intake Total 3900 197 1089 Output Total 425 Balance 644 190 3307 Meds/Results Medications: Active Medications Generic Name Dose Route Start Last Admin Trade Name Freq PRN Reason Stop Dose Admin Acetaminophen 650 mg 10/19/20 11:42 Acetaminophen 325 Mg Tablet PO Q4H PRN Mild Pain (1-3) or Fever Al Hydrox/Mg Hydrox/Simethicone 30 ml 10/19/20 11:42 Mag Hydrox/Al Hydrox/Simeth 30 Ml Udc PO QID PRN Dyspepsia Amlodipine Besylate 5 mg 10/19/20 21:00 10/20/20 21:34 Amlodipine Besylate 5 Mg Tablet BY MOUTH 5 mg HS CHAVA Administration Clopidogrel Bisulfate 75 mg 10/20/20 09:00 10/21/20 08:48 Clopidogrel Bisulfate 75 Mg Tablet PO 75 mg DAILY CHAVA Administration Dexamethasone 6 mg 10/20/20 12:40 10/21/20 08:48 Dexamethasone 2 Mg Tablet PO 10/29/20 08:01 2 mg DAILY@0800 CHAVA Administration Ergocalciferol 50,000 unit 10/20/20 15:10 10/20/20 18:40 Ergocalciferol 50,000 Unit Capsule PO 50,000 unit Q21D@0900 CHAVA Administration Escitalopram Oxalate 10 mg 10/20/20 09:00 10/21/20 08:48 Escitalopram Oxalate 10 Mg Tablet PO 10 mg DAILY CHAVA Administration Fenofibrate 160 mg 10/20/20 09:00 10/21/20 08:48 Fenofibrate 160 Mg Tablet PO 160 mg DAILY CHAVA Administration Finasteride 5 mg 10/20/20 09:00 10/21/20 08:48 Finasteride 5 Mg Tablet PO 5 mg DAILY CHAVA Administration Heparin Sodium (Porcine) 5,000 units 10/19/20 21:00 10/21/20 08:45 Heparin Sodium 5,000 Units/Ml Vial SUB-Q 5,000 units Q12HR CHAVA Administration Azithromycin 500 mg in 250 mls @ 250 mls/hr 10/19/20 16:00 10/20/20 21:35 Zithromax IVPB 250 mls/hr Q24H CHAVA Administration Ceftriaxone Sodium 2 gm in 100 mls @ 200 mls/hr 10/19/20 18:00 10/20/20 19:27 Rocephin 2 Gm/D5w 100 Ml IVPB Infused Q24H CHAVA Infusion Levofloxacin 750 mg 10/20/20 09:00 Levofloxacin Tab 750 Mg Tab
--- NOTE | 2020-10-21 19:21 | PC.NURSE ---
This patient, Christopher Arroyo, was transferred to [[id number] ] on 10/21/20 at 1845. Personal belongings sent with patient. Report given to [ ]. Appropriate documentation sent with patient.
--- NOTE | 2020-10-21 19:38 | PC.NURSE ---
this patient arrived to room 317 at 1900 from imu, V/S stable, no complaints of pain or discomfort
[2020-10-21] MEDS: lisinopriL 20 MG TABLET PO (20:40)
[2020-10-21] MEDS: amLODIPine BESYLATE 5 MG TABLET BY MOUTH (20:40)
[2020-10-22] VITALS (11 sets, daily range): BP systolic 120–155; BP diastolic 59–88; PULSE 63–89; RESP 16–22; TEMP 36.2–38.1; O2SAT 90–96
[2020-10-22] MEDS: ACETAMINOPHEN 325 MG TABLET 650 MG PO ×2 (06:02→21:28)
[2020-10-22 08:07] LABS: Alanine Aminotransferase 56 U/L (4-50); Albumin Level 3.1 g/dL (3.5-5.1); Alkaline Phosphatase 49 U/L (38-126); Anion Gap 6 mmol/L (8-16); Aspartate Amino Transferase 111 U/L (17-59); Bilirubin,Total 0.6 mg/dL (0.2-1.3); Blood Urea Nitrogen 36 mg/dL (9-20); CRP 29.4 mg/dL (<1.0); Calcium 8.6 mg/dL (8.4-10.2); Carbon Dioxide 31 mmol/L (22-30); Chloride 103 mmol/L (98-107); Estimated CRCL calculation 43 ml/min; Estimated Glomerular Filt Rate > 60; Glucose 107 mg/dL (75-110); Lactate Dehydrogenase 1043 U/L (313-618); Potassium 3.5 mmol/L (3.4-5.0); Sodium 140 mmol/L (137-145)
[2020-10-22] MEDS: DEXAMETHASONE 2 MG TABLET 6 MG PO (08:08)
[2020-10-22] MEDS: SIMVASTATIN 20 MG TABLET PO (08:09)
[2020-10-22] MEDS: PHENYTOIN SODIUM 100 MG CAP 300 MG BY MOUTH (08:09)
[2020-10-22] MEDS: CLOPIDOGREL BISULFATE 75 MG TABLET PO (08:09)
[2020-10-22] MEDS: FINASTERIDE 5 MG TABLET PO (08:09)
[2020-10-22] MEDS: ESCITALOPRAM OXALATE 10 MG TABLET PO (08:09)
[2020-10-22] MEDS: FENOFIBRATE 160 MG TABLET PO (08:09)
[2020-10-22] MEDS: HEPARIN SODIUM 5,000 UNITS/ML VIAL 5000 UNITS SUB-Q ×2 (08:10→21:26)
--- NOTE | 2020-10-22 16:48 | PM.IMPN ---
Progress Note: A&P Assessment and Plan (1) Pneumonia due to COVID-19 virus: Code(s): U07.1 - COVID-19; J12.89 - Other viral pneumonia Status: Acute Assessment and Plan: Started on Rocephin and Zithromax for diffuse lung infiltrates present. Was on Levofloxacin on the outpatient setting but discontinued due to generalized weakness. COVID positive on 10/14/20. ECHO showing EF 55% with grade 1 diastolic dysfunction. CXR reviewed from yesterday and showing progression despite clinically improving. Minimal O2 requirement but worse today at 3L despite benign exam findings. Efficacy is questionable so will continue to hold Remdesivir at the present time. LFTs noted and probably related to COVID. Inflammatory markers up and down. Continue Dexamethasone. Continue to monitor. Repeat COVID test pending. Wean O2 as tolerated. Stop abx. Okay to stop tele (2) Essential hypertension: Code(s): I10 - Essential (primary) hypertension Status: Acute Assessment and Plan: Patient's blood pressure was reviewed on 10/22 Blood pressure remains well controlled. Will continue current medications with Norvasc and Lisinopril. Continue to monitor. (3) Recurrent falls: Code(s): R29.6 - Repeated falls Status: Acute Assessment and Plan: Hip xray showing osteoarthritis. Continue fall precautions. Continue PT/OT (4) UTI (urinary tract infection): Code(s): N39.0 - Urinary tract infection, site not specified Status: Acute Assessment and Plan: UA noted. Urine culture most likely contaminated. (5) Epilepsy: Code(s): G40.909 - Epilepsy, unspecified, not intractable, without status epilepticus Status: Acute Assessment and Plan: Stable. Continue Dilantin. (6) DVT prophylaxis: Code(s): Z29.9 - Encounter for prophylactic measures, unspecified Status: Acute Assessment and Plan: Heparin Subjective Date/time seen: 10/22/20 16:48 Interval history: Date of service: 10/22 80yo male with HTN, BPH and recently diagnosed with COVID here for GNW, poor appetite and recurrent falls. No complaints. Slept well. SOB better. No CP. Exam Narrative: Exam Narrative: Tm 100.6 97.4 120/64 63 18 94% 3L Gen - NARD lying semi-recumb in bed Chest -lungs clear to auscultation. Normal respiratory rate. CV - RRR S1/S2; Tele showing sinus arrhythmia but no significant dysrhythmias Abd - Soft, NT/ND, Positive BS Ext - No pedal edema Psych - Nml mood and affect Skin - ecchymosis left anterior chest wall and abd wall Objective Data Vital Signs Vital Signs: Vital Signs - 24 hr 10/21/20 19:00 10/21/20 20:00 10/21/20 20:30 Temperature 98.3 F 99.1 F Pulse Rate 63 73 75 Respiratory Rate 18 20 18 Blood Pressure 123/66 120/93 H 119/59 L Pulse Oximetry 90 100 90 10/21/20 20:59 10/22/20 00:00 10/22/20 04:00 Temperature 100.0 F H 100.6 F H Pulse Rate 88 89 Respiratory Rate 22 H 20 Blood Pressure 124/66 124/88 Pulse Oximetry 91 90 94 10/22/20 06:02 10/22/20 07:26 10/22/20 08:00 Temperature 100 F H 98.7 F 98.2 F Pulse Rate 76 Respiratory Rate 16 Blood Pressure 130/59 L Pulse Oximetry 95 10/22/20 08:11 10/22/20 12:00 Temperature 97.4 F L Pulse Rate 77 63 Respiratory Rate 16 18 Blood Pressure 120/64 Pulse Oximetry 95 94 Intake/Output Intake/Output: Intake & Output 10/19/20 10/20/20 10/21/20 10/22/20 23:59 23:59 23:59 23:59 Intake Total 1088 712 1330 520 Output Total 425 Balance 097 687 4926 520 Meds/Results Medications: Active Medications Generic Name Dose Route Start Last Admin Trade Name Freq PRN Reason Stop Dose Admin Acetaminophen 650 mg 10/19/20 11:42 10/22/20 06:02 Acetaminophen 325 Mg Tablet PO 650 mg Q4H PRN Administration Mild Pain (1-3) or Fever Al Hydrox/Mg Hydrox/Simethicone 30 ml 10/19/20 11:42 Mag Hydrox/Al Hydrox/Simeth 30 Ml Ud
[2020-10-22] MEDS: amLODIPine BESYLATE 5 MG TABLET BY MOUTH (21:26)
[2020-10-22] MEDS: lisinopriL 20 MG TABLET PO (21:26)
[2020-10-23] VITALS (8 sets, daily range): BP systolic 141–157; BP diastolic 69–93; PULSE 66–89; RESP 16–20; TEMP 36.7–38.1; O2SAT 91–93
[2020-10-23] MEDS: DEXAMETHASONE 2 MG TABLET 6 MG PO (08:09)
[2020-10-23] MEDS: FINASTERIDE 5 MG TABLET PO (08:09)
[2020-10-23] MEDS: HEPARIN SODIUM 5,000 UNITS/ML VIAL 5000 UNITS SUB-Q ×2 (08:09→20:39)
[2020-10-23] MEDS: PHENYTOIN SODIUM 100 MG CAP 300 MG BY MOUTH (08:09)
[2020-10-23] MEDS: CLOPIDOGREL BISULFATE 75 MG TABLET PO (08:09)
[2020-10-23] MEDS: SIMVASTATIN 20 MG TABLET PO (08:10)
[2020-10-23] MEDS: NITROFURANTOIN MACROCRYSTALS 50 MG CAP BY MOUTH (08:10)
[2020-10-23] MEDS: FENOFIBRATE 160 MG TABLET PO (08:10)
[2020-10-23] MEDS: ESCITALOPRAM OXALATE 10 MG TABLET PO (08:10)
[2020-10-23] MEDS: ACETAMINOPHEN 325 MG TABLET 650 MG PO (08:20)
[2020-10-23 08:24] LABS: Alanine Aminotransferase 57 U/L (4-50); Albumin Level 3.2 g/dL (3.5-5.1); Alkaline Phosphatase 54 U/L (38-126); Anion Gap 4 mmol/L (8-16); Aspartate Amino Transferase 101 U/L (17-59); Bilirubin,Total 0.7 mg/dL (0.2-1.3); Blood Urea Nitrogen 31 mg/dL (9-20); Calcium 8.9 mg/dL (8.4-10.2); Carbon Dioxide 33 mmol/L (22-30); Chloride 104 mmol/L (98-107); Estimated CRCL calculation 52 ml/min; Estimated Glomerular Filt Rate > 60; Glucose 100 mg/dL (75-110); Lactate Dehydrogenase 1057 U/L (313-618); Potassium 3.9 mmol/L (3.4-5.0); Sodium 141 mmol/L (137-145)
[2020-10-23 08:46] LABS: CRP 31.2 mg/dL (<1.0)
--- NOTE | 2020-10-23 12:26 | PM.IMPN ---
Progress Note: A&P Assessment and Plan (1) Pneumonia due to COVID-19 virus: Code(s): U07.1 - COVID-19; J12.89 - Other viral pneumonia Status: Acute Assessment and Plan: Started on Rocephin and Zithromax for diffuse lung infiltrates present. Was on Levofloxacin on the outpatient setting but discontinued due to generalized weakness. COVID positive on 10/14/20. ECHO showing EF 55% with grade 1 diastolic dysfunction. CXR reviewed from 10/21 showing progression despite clinically improving. Minimal O2 requirement at 2L. Out of the window for Remdesivir. LFTs noted and probably related to COVID. Inflammatory markers up and down. Continue Dexamethasone Day 4. Continue to monitor. Repeat COVID test pending. Wean O2 as tolerated. (2) Essential hypertension: Code(s): I10 - Essential (primary) hypertension Status: Acute Assessment and Plan: Patient's blood pressure was reviewed on 10/23 Blood pressure remains reasonably well controlled. Will continue current medications with Norvasc and Lisinopril. Continue to monitor. (3) Recurrent falls: Code(s): R29.6 - Repeated falls Status: Acute Assessment and Plan: Hip xray showing osteoarthritis. No obvious findings on exam except for some dital thigh pain. Continue fall precautions. Continue PT/OT. Check left knee xray. (4) UTI (urinary tract infection): Code(s): N39.0 - Urinary tract infection, site not specified Status: Acute Assessment and Plan: UA noted. Urine culture most likely contaminated. (5) Epilepsy: Code(s): G40.909 - Epilepsy, unspecified, not intractable, without status epilepticus Status: Acute Assessment and Plan: Stable. Continue Dilantin. (6) DVT prophylaxis: Code(s): Z29.9 - Encounter for prophylactic measures, unspecified Status: Acute Assessment and Plan: Heparin Subjective Date/time seen: 10/23/20 12:26 Interval history: Date of service: 10/23 80yo male with HTN, BPH and recently diagnosed with COVID here for GNW, poor appetite and recurrent falls. Feels well. Has decreased appetitie but no n/v. No CP or abd pain. Cough better. Spoke with PT: he is min assist and able to walk 5 feet but left knee gives out (chronic). He was standby for bed mobility. Denies dysuria Exam Narrative: Exam Narrative: Tm 100.6 100.6 141/93 89 18 92% 2L Gen - NARD lying sflat in bed Chest -lungs clear to auscultation bilateally. Normal respiratory rate. CV - RRR S1/S2 Abd - Soft, NT/ND, Positive BS Ext - No pedal edema; nml ROM on the bilateral ankle, hip and knee without pain. left distal anterior thigh pain to palpation. Neuo - nml strength to the LE except for mild weakness in bilateral hip flexors Psych - Nml mood and affect Skin - resolving ecchymosis left anterior chest wall and abd wall Objective Data Vital Signs Vital Signs: Vital Signs - 24 hr 10/22/20 16:00 10/22/20 20:00 10/22/20 21:28 Temperature 97.1 F L 100.3 F H 100.3 F H Pulse Rate 65 74 Respiratory Rate 18 20 Blood Pressure 138/72 155/70 H Pulse Oximetry 94 96 10/22/20 23:18 10/23/20 00:00 10/23/20 04:00 Temperature 100.2 F H 100.6 F H 99.9 F H Pulse Rate 69 82 Respiratory Rate 18 20 Blood Pressure 146/70 H 151/78 H Pulse Oximetry 92 91 10/23/20 08:00 10/23/20 08:14 10/23/20 08:20 Temperature 100.6 F H 100.6 F H Pulse Rate 89 89 Respiratory Rate 16 18 Blood Pressure 141/93 H Pulse Oximetry 93 92 Intake/Output Intake/Output: Intake & Output 10/20/20 10/21/20 10/22/20 10/23/20 23:59 23:59 23:59 23:59 Intake Total 960 1640 1190 500 Balance 960 1640 1190 500 Meds/Results Medications: Active Medications Generic Name Dose Route Start Last Admin Trade Name Freq PRN Reason Stop Dose Admin Acetaminophen 650 mg 10/19/20 11:42 10/23/20 08:20 Acetaminophen 325 Mg Tablet PO 650 mg Q4H PRN Admin
[2020-10-23 17:05] LABS: SARS-CoV-2 RNA PCR Positive
[2020-10-23] MEDS: lisinopriL 20 MG TABLET PO (20:39)
[2020-10-23] MEDS: amLODIPine BESYLATE 5 MG TABLET BY MOUTH (20:39)
[2020-10-24] VITALS: BP 146/81; PULSE 81; RESP 20; TEMP 36.9; O2SAT 92
[2020-10-24 04:00] VITALS: BP 140/75; PULSE 82; RESP 20; TEMP 36.9; O2SAT 93
[2020-10-24] MEDS: CLOPIDOGREL BISULFATE 75 MG TABLET PO (07:57)
[2020-10-24] MEDS: DEXAMETHASONE 2 MG TABLET 6 MG PO (07:57)
[2020-10-24] MEDS: ESCITALOPRAM OXALATE 10 MG TABLET PO (07:58)
[2020-10-24] MEDS: FINASTERIDE 5 MG TABLET PO (07:58)
[2020-10-24] MEDS: FENOFIBRATE 160 MG TABLET PO (07:58)
[2020-10-24] MEDS: PHENYTOIN SODIUM 100 MG CAP 200 MG BY MOUTH (07:59)
[2020-10-24] MEDS: HEPARIN SODIUM 5,000 UNITS/ML VIAL 5000 UNITS SUB-Q (07:59)
[2020-10-24 08:00] VITALS: BP 137/81; PULSE 82; PULSE 84; RESP 20; TEMP 36.8; O2SAT 91; O2SAT 93
[2020-10-24] MEDS: SIMVASTATIN 20 MG TABLET PO (08:00)
--- NOTE | 2020-10-24 11:46 | PM.DS ---
DS: Admitting Diagnosis Admitting Diagnosis Admitting Diagnosis: COVID 19, Pneumonia, Weakness, Dehydration DS: Discharge Diagnosis Discharge Diagnosis (1) Pneumonia due to COVID-19 virus: Code(s): U07.1 - COVID-19; J12.89 - Other viral pneumonia Status: Acute Assessment and Plan: Started on Rocephin and Zithromax for diffuse lung infiltrates present. Was on Levofloxacin on the outpatient setting but discontinued due to generalized weakness. COVID positive on 10/14/20. ECHO showing EF 55% with grade 1 diastolic dysfunction. Minimal O2 requirement at 2L and essentially stable for 5 days. Out of the window for Remdesivir. LFTs mildly elevated felt related to COVID. Inflammatory markers up and down. Treated with Dexamethasone. (2) Essential hypertension: Code(s): I10 - Essential (primary) hypertension Status: Acute Assessment and Plan: Patient's blood pressure was monitored closely Blood pressure remains reasonably well controlled. We continued Norvasc and Lisinopril. (3) Recurrent falls: Code(s): R29.6 - Repeated falls Status: Acute Assessment and Plan: Patient with falls and complaints of left leg pain. Hip xray showing osteoarthritis. Left knee xray showing mild left knee osteoarthritis. We continued fall precautions. He worked with PT/OT. (4) UTI (urinary tract infection): Code(s): N39.0 - Urinary tract infection, site not specified Status: Acute Assessment and Plan: UA noted. Urine culture most likely contaminated. UTI ruled out. (5) Epilepsy: Code(s): G40.909 - Epilepsy, unspecified, not intractable, without status epilepticus Status: Acute Assessment and Plan: Stable. We continued Dilantin. (6) Troponin level elevated: Code(s): R77.8 - Other specified abnormalities of plasma proteins Status: Acute Assessment and Plan: Nonspecific elevation of troponins in the setting of infection. No acute ST segment abnormality by EKG. Not felt related to ACS. Cardiology did follow patient while here. Echo as mentioned above. No wall motion abnormalities. DS: Summary Hospital Course Reason for hospitalization: 80yo male with hx of HTN and COVI-19 positive here for generalized weakness, poor appetite and recurrent falls. Please see H&P for details Hospital Course: As above Status at Discharge Cognitive/behavioral status at discharge: PATIENT IS STABLE FOR DISCHARGE Time Spent with Patient Time attestation: Total time spent providing and/or coordinating discharge services:32 minutes Time spent: Greater than 30 minutes Exam Narrative: Exam Narrative: AF 98.2 137/81 84 20 91% 2L Gen - NARD Chest - few minor bibasilar rhonchi o/w clear, nml RR CV - RRR S1/S2 Abd - Soft, NT/ND, Positive BS Ext - No pedal edema Psych - Nml mood and affect Skin - resolving ecchymosis left anterior chest wall and abd wall DS: Data Data Completed and Pending Labs on day of discharge: Labs from last 24 hours 10/21/20 15:11 SARS-CoV-2 RNA (RT-PCR) Positive A Discharge Plan Discharge Attending physician on discharge: Grady Mayers Consulting providers: Vickie Pink ; Bar Jaeger Discharging Clinician: Grady Mayers Anticipated Discharge Date/Time: 10/24/20 12:20 Patient Disposition: SNF Activity: as tolerated Diet: heart healthy Discharge Instructions: Stay in a separate room from other household members if possible. Use separate bathroom if possible Avoid contact with other members of the household and pets. Do not share personal household items like cups, towels,ect. Wear masks when around other people if you are able to. Please avoid large gathering, wear face coverings in public and practice social distance. Take precautions to avoid falls. Rise slowly from a lying or sitting position. Pause before standing or walking. Follow-up
[2020-10-24 12:00] VITALS: BP 116/71; PULSE 92; RESP 20; TEMP 36.3; O2SAT 92
--- NOTE | 2020-10-27 08:59 | PM.IMPN ---
Progress Note: A&P Assessment and Plan (1) Pneumonia due to COVID-19 virus: Code(s): U07.1 - COVID-19; J12.89 - Other viral pneumonia Status: Acute Assessment and Plan: Started on Rocephin and Zithromax for diffuse lung infiltrates present. Was on Levofloxacin on the outpatient setting but discontinued due to generalized weakness. COVID positive on 10/14/20. ECHO showing EF 55% with grade 1 diastolic dysfunction. CXR reviewed from today and showing progression despite clinically improving. Minimal O2 requirement and efficacy is questionable so will continue to hold Remdesivir at the present time. LFTs noted and probably related to COVID. Inflammatroy markers noted as well. Continue Dexamethasone. Will stop abx. Continue to monitor. (2) Essential hypertension: Code(s): I10 - Essential (primary) hypertension Status: Acute Assessment and Plan: Patient's blood pressure was reviewed on 10/21 Blood pressure remains well controlled. We continued current medications with Norvasc and Lisinopril. Continue to monitor. (3) Recurrent falls: Code(s): R29.6 - Repeated falls Status: Acute Assessment and Plan: Hip xray showing osteoarthritis. Continue fall precautions. Continue PT/OT. (4) UTI (urinary tract infection): Code(s): N39.0 - Urinary tract infection, site not specified Status: Acute Assessment and Plan: UA noted. Urine culture most likely contaminated. Okay to stop Rocephin. (5) Epilepsy: Code(s): G40.909 - Epilepsy, unspecified, not intractable, without status epilepticus Status: Acute Assessment and Plan: Stable. We continued Dilantin. (6) DVT prophylaxis: Code(s): Z29.9 - Encounter for prophylactic measures, unspecified Status: Acute Assessment and Plan: Heparin Subjective Date/time seen: ORIGINAL NOTE LOST. PATIENT WAS SEEN AND EXAMINED ON 10/21/2020 10/21/20 08:59 Interval history: Date of service: 10/21 80yo male with HTN, BPH and recently diagnosed with COVID here for GNW, poor appetite and recurrent falls. Still having liquid stool. Exam Narrative: Exam Narrative: AF 97.3 139/76 87 20 94% 1L Gen - NARD Chest - lungs clear to auscultation. Normal respiratory rate. CV - RRR S1/S2; Tele showing no significant dysrhtythmias Abd - Soft, NT/ND, Positive BS Ext - No pedal edema Psych - Nml mood and affect Skin - ecchymosis left anterior chest wall and abd wall but no pain to palpation to the chest wall Objective Data Intake/Output Intake/Output: Intake & Output 10/24/20 10/25/20 10/26/20 10/27/20 23:59 23:59 23:59 23:59 Intake Total 1000 Balance 1000 Meds/Results Radiology Results: ITS Impressions Head CT 10/19/20 09:00 IMPRESSION: 1. No acute intracranial findings. 2. Chronic age related findings. 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 Abdomen/Pelvis CT 10/19/20 09:01 IMPRESSION: 1. Multifocal pneumonia. 2. Moderate-sized sliding hiatal hernia. 3. Bladder stones. 4. Diffuse bladder wall thickening with multiple diverticula, likely secondary to chronic outlet obstruction from the mildly enlarged prostate. 5. Bilateral inguinal hernias containing fat. Ribs w/Chest X-Ray 10/19/20 09:26 IMPRESSION: No displaced left rib fractures. Moderate right-sided predominant acute airspace disease. Hip/Pelvis X-Ray 10/20/20 14:00 IMPRESSION: 1. Moderate osteoarthritis of the hips. Chest X-Ray 10/21/20 06:32 Impression: 1: Interval progression of bilateral airspace disease, compatible with pneumonia. Knee X-Ray 10/23/20 15:09 IMPRESSION: 1. Mild left knee osteoarthritis.
== END 2020-10-24 19:30 | DRG 177 ==
LOC: ANHED 10:39 → ANHIMU 11:15 → ANH3MEDSUR 10-21 18:49
PROVIDERS: Admitting Provider Internal Medicine; Emergency Provider Emergency Medicine; PCP Internal Medicine; Visit Provider Internal Medicine
DX: U07.1 COVID-19 (principal); J12.89 Other viral pneumonia; N39.0 Urinary tract infection, site not specified; E86.0 Dehydration; S29.012A Strain of muscle and tendon of back wall of thorax, initial encounter; I10 Essential (primary) hypertension; N40.0 Benign prostatic hyperplasia without lower urinary tract symptoms; G40.909 Epilepsy, unspecified, not intractable, without status epilepticus
CPT/HCPCS: 36415; 70450; 71045; 71046; 71100; 73502; 73560; 74177; 80053; 81001; 82550; 82728; 83615; 84484; 85025; 85027; 85610; 85730; 86140; 87086; 87088; 87635; 93005; 93306; 96360; 97110; 97161; 97165; 97530; 97535; 99285; A9270; C9803; G0378; J0456; J0696; J1644; J7040; J8540; Q9967; U0003